=== PATIENT | female | born 1965 | race Caucasian/White ===

== ENCOUNTER 2022-04-22 12:01 | Emergency (ER) | payer BC, OTHER ==
--- NOTE | 2022-04-22 13:17 | RAD REPORT ---
EXAM DESCRIPTION: US - Extremity Venous Uni Ltd - 04/22/2022 12:56 pm CLINICAL HISTORY: Swelling COMPARISON: None. TECHNIQUE: Real-time sonographic evaluation of the left lower extremity deep venous system was perfo rmed. FINDINGS: Normal compressibility, flow augmentation, phasic flow and spontaneous flow are identified in the left lower extremity common femoral, superficial femoral, popliteal and posterior tibial vein s. No intraluminal filling defects seen. IMPRESSION: No DVT in the left lower extremity.
--- NOTE | 2022-04-22 13:51 | RAD REPORT ---
EXAM DESCRIPTION: RAD - Foot Left 2 View - 04/22/2022 1:34 pm CLINICAL HISTORY: Painand swelling COMPARISON: No comparisons FINDINGS: No fracture, dislocation or periosteal reaction. No acute or destructive bony process. No significant IP joint or MTP joint degenerative change. Degenerative spurring is seen along the artic ular margins of the tarsal bones. Patient has a large plantar spur and large spurring at the Achilles attachment. Soft tissue swelling is present around the foot but no air or foreign body seen. IMPRESSION: Soft tissue swelling around the left foot with no air or foreign body seen. Midfoot degenerative change along with Achilles and plantar spurring. No acute bone process.
[2022-04-22] MEDS ORDERED: KETOROLAC 30 MG/ML INJ ONE (14:19)
--- NOTE | 2022-04-22 14:36 | RAD REPORT ---
EXAM DESCRIPTION: RAD - Knee Left 2 View - 04/22/2022 2:25 pm CLINICAL HISTORY: Pain COMPARISON: No comparisons FINDINGS: No fracture, dislocation or periosteal reaction.No joint effusion seen. No joint space prince rowing. Large bone spur is present at the quadriceps attachment to the patella. There is minimal dunham lla marginal spurring. Mild edema changes are seen in the soft tissues anterior to the knee joint and proximal tibia. No air or foreign body in the soft tissues. IMPRESSION: Left knee degenerative change present as detailed. No acute bone or joint finding. Clinical concerns for internal derangement or occult bony injury could be further assessed with MR im aging.
--- NOTE | 2022-04-22 14:38 | RAD REPORT ---
EXAM DESCRIPTION: RAD - Tib Fib Left - 04/22/2022 2:25 pm CLINICAL HISTORY: Leg pain and swelling without trauma COMPARISON: None. FINDINGS: No fracture is identified. There is no dislocation or periosteal reaction noted. Degenerat regina changes are present at the knee joint, separately detailed. Degenerative changes are present at t he tibiotalar joint space. Large plantar and Achilles spurs are present. Subcutaneous fatty soft tissues appear edematous with the baseline for the patient unknown. No air or foreign body in the soft tissues. No muscle hematoma or mass confirmed. IMPRESSION: Soft tissue swelling or edema with the baseline for the patient unknown. No air or forei gn body seen. Degenerative knee and ankle joint changes are present with no acute finding.
--- NOTE | 2022-04-22 14:45 | ER ---
Nurse's Notes [facility] Name: Joselyn Jacobson Age: 56 yrs Sex: Female : 1965 Arrival Date: 04/22/2022 Time: 12:04 Bed DIS4 Private MD: Diagnosis: Contusion of left lower leg;Contusion of left foot Presentation: 04/22 13:01 Chief complaint: Patient states: Pain to ENA lower legs - swelling X 2-3 days. ld1 Coronavirus screen: At this time, the client does not indicate any symptoms associated with coronavirus-19. Ebola Screen: No symptoms or risks identified at this time. Initial Sepsis Screen: Does the patient meet any 2 criteria? No. Patient's initial sepsis screen is negative. Does the patient have a suspected source of infection? No. Patient's initial sepsis screen is negative. Risk Assessment: Do you want to hurt yourself or someone else? Patient reports desire/thoughts of hurting themselves or someone else. Provider notified. Onset of symptoms was April 22, 2022. 13:01 Method Of Arrival: Ambulatory ld1 13:01 Acuity: RICKEY 3 ld1 Triage Assessment: 12:57 General: Appears in no apparent distress. comfortable, Behavior is calm, cooperative, ld1 appropriate for age. Pain: Complains of pain in right leg and left leg Pain does not radiate. Pain currently is 8 out of 10 on a pain scale. Quality of pain is described as throbbing. EENT: No signs and/or symptoms were reported regarding the EENT system. Neuro: Level of Consciousness is awake, alert, obeys commands, Oriented to person, place, time, situation, Appropriate for age. Cardiovascular: Capillary refill < 3 seconds Patient's skin is warm and dry. Respiratory: Airway is patent Respiratory effort is even, unlabored. GI: Abdomen is round non-distended. : No signs and/or symptoms were reported regarding the genitourinary system. Derm: No signs and/or symptoms reported regarding the dermatologic system. Musculoskeletal: No signs and/or symptoms reported regarding the musculoskeletal system. 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 - Social history:: Smoking status: Patient denies any tobacco usage or history of. Patient/guardian denies using alcohol. Vital Signs: 13:01 BP 154 / 99; Pulse 73; Resp 18; Temp 97.8(O); Pulse Ox 98% on R/A; Weight 136.08 kg; ld1 Height 5 ft. 4 in. (162.56 cm); Pain 7/10; 13:01 Body Mass Index 51.49 (136.08 kg, 162.56 cm) ld1 ED Course: 12:04 Patient arrived in ED. rg4 12:06 [facility]aly Ricketts FNP [facility] 7 12:06 Thee Luque DO is Attending Physician. 7 12:53 Extremity Venous Uni Ltd US In Process Unspecified. EDMS 13:01 Arm band placed on right wrist. ld1 13:02 Triage completed. ld1 13:36 Foot Left 2 View XRAY In Process Unspecified. EDMS 14:09 Alvina Garcia, RN is Primary Nurse. iw 14:26 XRAY Tib Fib LEFT In Process Unspecified. EDMS 14:26 XRAY Knee LEFT 2 view In Process Unspecified. EDMS Administered Medications: 14:33 Drug: Ketorolac 30 mg Route: IM; Site: left deltoid; iw Outcome: 14:44 Discharge ordered by . [facility] 15:04 Patient left the ED. iw Signatures: Dispatcher [employer] EDMS Alvina Garcia, RN RN Stephanie Ramirez rg4 Vandana Hart RN RN ld1 Nathaly Ricketts FNP EXTRACTOR AND WRINGER OPERATOR [facility]
--- NOTE | 2022-04-22 14:45 | EDPHYS ---
Physician Documentation [facility] Name: Joselyn Jacobson Age: 56 yrs Sex: Female : 1965 Arrival Date: 04/22/2022 Time: 12:04 Bed DIS4 Private MD: ED Physician Thee Luque HPI: 04/22 15:26 This 56 yrs old Female presents to ER via Ambulatory with complaints of L leg and foot jh7 swelling. 15:26 The patient presents with swelling. The complaints affect the dorsum of left foot and jh7 left leg. The patient states that she had a bad fall 2 weeks ago. Reports that she is had bruising and increased swelling to the lower leg and foot since then. Reports that her PCP sent her to rule out DVT. Reports no issues with weightbearing.. 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 - Social history:: Smoking status: Patient denies any tobacco usage or history of. Patient/guardian denies using alcohol. ROS: 15:26 Constitutional: Negative for fever, chills, and weight loss, Eyes: Negative for injury, jh7 pain, redness, and discharge, Cardiovascular: Negative for chest pain, palpitations, and edema, Respiratory: Negative for shortness of breath, cough, wheezing, and pleuritic chest pain, Abdomen/GI: Negative for abdominal pain, nausea, vomiting, diarrhea, and constipation, Back: Negative for injury and pain, Skin: Negative for injury, rash, and discoloration, Neuro: Negative for headache, weakness, numbness, tingling, and seizure. 15:26 MS/extremity: Positive for contusion, ecchymosis, swelling, Negative for decreased range of motion. 15:26 All other systems are negative. Exam: 15:26 Constitutional: This is a well developed, well nourished patient who is awake, alert, jh7 and in no acute distress. Neck: Trachea midline, no thyromegaly or masses palpated, and no cervical lymphadenopathy. Supple, full range of motion without nuchal rigidity, or vertebral point tenderness. No Meningismus. Cardiovascular: Regular rate and rhythm with a normal S1 and S2. No gallops, murmurs, or rubs. Normal PMI, no JVD. No pulse deficits. Respiratory: Lungs have equal breath sounds bilaterally, clear to auscultation and percussion. No rales, rhonchi or wheezes noted. No increased work of breathing, no retractions or nasal flaring. Abdomen/GI: Soft, non-tender, with normal bowel sounds. No distension or tympany. No guarding or rebound. No evidence of tenderness throughout. Back: No spinal tenderness. No costovertebral tenderness. Full range of motion. Skin: Warm, dry with normal turgor. Normal color with no rashes, no lesions, and no evidence of cellulitis. Neuro: Awake and alert, GCS 15, oriented to person, place, time, and situation. Motor strength 5/5 in all extremities. Sensory grossly intact. Normal gait. 15:26 Musculoskeletal/extremity: ROM: intact in all extremities, Circulation is intact in all extremities. Sensation intact. DVT Exam: no erythema, no increased warmth, swelling, of the left leg, Significant bruising and swelling to the left lower leg and left foot. There is pitting edema noted at the dorsum of the left foot. NVI, full ROM, able to ambulate.. Vital Signs: 13:01 BP 154 / 99; Pulse 73; Resp 18; Temp 97.8(O); Pulse Ox 98% on R/A; Weight 136.08 kg; ld1 Height 5 ft. 4 in. (162.56 cm); Pain 7/10; 13:01 Body Mass Index 51.49 (136.08 kg, 162.56 cm) ld1 MDM: 12:24 Patient medically screened. [facility] 14:45 Differential diagnosis: closed fracture, contusion, DVT, SVT. Data reviewed: vital [facility] signs, nurses notes, radiologic studies, plain films, ultrasound. Data interpreted: Pulse oximetry: is 98 %. Interpretation: normal. Counseling: I had a detailed discussion with the patient and/or guardian regarding: the historical points, exam findings, and any diagnostic results supporting the discharge/admit diagnosis, to return to the emergency department if symptoms worsen or persist or if there are any questions or concerns that arise at home. 04/22 12:16 Order name: Extremity Venous Uni Ltd US; Complete Time: 13:31 7 04/22 12:16 Order name: Foot Left 2 View XRAY; Complete Time: 13:53 jh7 04/22 14:03 Order name: XRAY Tib Fib LEFT; Complete Time: 14:42 7 04/22 14:03 Order name: XRAY Knee LEFT 2 view; Complete Time: 14:42 [facility] Administered Medications: 14:33 Drug: Ketorolac 30 mg Route: IM; Site: left deltoid; iw Disposition: 16:38 Co-signature as Attending Physician, Thee Luque DO I agree with the assessment and ms3 plan of care. Disposition Summary: 04/22/22 14:44 Discharge Ordered Location: Home [facility] Problem: new [facility] Symptoms: have improved jh7 Condition: Stable [facility] Diagnosis - Contusion of left lower leg jh7 - Contusion of left foot [facility] Followup: [facility] - With: Private Physician - When: 2 - 3 days - Reason: Recheck today's complaints Discharge Instructions: - Discharge Summary Sheet [facility] - Foot Contusion [facility] Forms: - Medication Reconciliation Form [facility] - Thank You Letter [facility] Prescriptions: - Naprosyn 500 mg Oral Tablet - take 1 tablet by ORAL route 2 times per day take with food; 30 tablet; Refills: jh7 0, Product Selection Permitted Signatures: Dispatcher [employer] Alvina Hanna RN RN iw Sims, Marcus, DO DO ms3 Vandana Hart RN RN ld1 Nathaly Ricketts FNP MANAGER MECHANICAL jh7
[2022-04-22 15:49] VITALS: BP 154/99; TEMP 97.8; O2SAT 98
== END 2022-04-22 15:04 | disposition home or self-care (01) ==
LOC: ER 12:01
DX: S80.12XA Contusion of left lower leg, initial encounter (principal); S90.32XA Contusion of left foot, initial encounter; I10 Essential (primary) hypertension; Z88.2 Allergy status to sulfonamides; Z88.8 Allergy status to other drugs, medicaments and biological substances
CPT/HCPCS: 93971; 96372; 99283